=== PATIENT | female | born 1940 | race Caucasian/White ===

== ENCOUNTER 2023-01-23 19:01 | Emergency (ER) | payer MEDICARE, SELFPAY ==
--- NOTE | ~2023-01-23 | XR_ITS ---
EXAMINATION: XR chest 2V Exam Date/Time: 01/23/2023 19:25 CDT HISTORY: non productive cough w/sob X's 2 days Comparison: 05/10/2015. RESULT: Lines, tubes, and devices: None. Lungs and pleura: Senescent changes, otherwise clear. Cardiomediastinal silhouette: Stable. Moderate hiatal hernia. Other: No acute osseous or upper abdominal finding. IMPRESSION: No acute cardiopulmonary process. Reviewed, dictated and finalized at location K.
--- NOTE | 2023-01-23 19:02 | ED.URI ---
HPI - URI/Sore Throat General Chief Complaint: Upper Respiratory Infection Stated Complaint: Cough,Runny Nose,Sore Throat Time Seen by Provider: 01/23/23 19:02 Source: patient Mode of arrival: ambulatory Limitations: no limitations History of Present Illness HPI Narrative: Camille is an 82-year-old female patient presenting to the clinic with complaints of body aches, fatigue, runny nose, cough, shortness of breath, and sore throat x2 days. Cough is nonproductive. No history of asthma or COPD. She reports that she did a COVID test today and thought it may have been positive. Is requesting a COVID test as she is needing confirmation for work MD elicited complaint: cough, sore throat, rhinorrhea and nasal congestion Related Data Home Medications Medication Instructions Recorded Confirmed clopidogrel 75 mg tablet 75 mg PO DAILY 01/23/23 01/23/23 dicyclomine 10 mg capsule 10 mg PO HS 01/23/23 01/23/23 estradiol 1 mg tablet 1 mg PO DAILY 01/23/23 01/23/23 lisinopril 20 mg tablet 20 mg PO DAILY 01/23/23 01/23/23 pantoprazole 20 mg tablet,delayed 20 mg PO DAILY 01/23/23 01/23/23 release tizanidine 4 mg tablet 4 mg PO HS 01/23/23 01/23/23 Allergies Allergy/AdvReac Type Severity Reaction Status Date / Time hydrocodone AdvReac Mild Hives Verified 01/23/23 19:04 Review of Systems Review of Systems: Pertinent positives per HPI. Patient denies any fever, chills, rash, headache, visual changes, dizziness, chest pain, palpitations, nausea, vomiting, diarrhea, constipation, abdominal pain, or any urinary issues. PMFSH Comments At the time of my signature, I reviewed and agree with the nursing past medical, surgical, social, and family history. There is no relevant family history pertinent to the patient complaint. Exam Narrative: General: Well-developed, well nourished, in no apparent distress Head: Normocephalic, atraumatic Eyes: Pupils equally round and reactive to light bilaterally, EOM intact, sclera and conjunctive clear, no discharge, lids normal Ears: TMs intact and congested, ear canals clear, no drainage, grossly hearing normal. Nose: Nares patent, clear nasal discharge, no inflammation, no sinus tenderness. Mouth: Oral pharynx without lesions or masses, good dentition, MMM. Postnasal drip Neck: Supple, trachea midline, no enlargement of anterior or posterior cervical nodes, no thyroid masses or goiter palpable. Cardio: Regular rate and rhythm, s1 and s2 normal, no murmur appreciated. Resp: Clear to auscultation bilaterally, no rhonchi, rales, wheezing or rubs Course Course Emergency Course: Portions of this record may have been created with voice recognition software. Level of Care: Express Care Visit Vital Signs Vital signs: Vital signs reviewed MDM - URI/Sore Throat MDM Narrative Medical decision making narrative: At the time of visit patient is resting comfortably on exam table. COVID, influenza, and strep testing was completed and was negative in the clinic today. We will send strep for culture. Chest x-ray was performed and shows no acute cardiopulmonary process. I suspect patient has URI/pharyngitis/viral syndrome. Supportive measures were discussed with the patient she voiced understanding discharge instructions. Patient's blood pressure was elevated in the clinic today and this was discussed with the patient. She is to follow up with her PCP if symptoms persist Differential Diagnosis Differential diagnosis: Likely upper respiratory infection, otitis media, sinusitis, viral infection, bronchitis, influenza, pharyngitis and other (COVID) Imaging Data Radiologist's impression: [place] [address] XRay Report Signed Patient: Camille Davies : 1940 MR#: [id number] Age/Sex: 82 / F Acct:[id number] Loc: [facility]? ? ADM Date: 01/23/23Attending Dr: Ordering Physician: Fredy Luke APRN Date of Ser
[2023-01-23 19:18] VITALS: BP 191/75; PULSE 88; RESP 18; TEMP 36.9; O2SAT 100
[2023-01-23 20:07] VITALS: BP 185/62
== END 2023-01-23 19:55 | disposition home or self-care (01) ==
PROVIDERS: Emergency Provider Nurse Practitioner Family; PCP Internal Medicine
DX: J06.9 Acute upper respiratory infection, unspecified (principal); J02.9 Acute pharyngitis, unspecified; B34.9 Viral infection, unspecified; Z20.822 Contact with and (suspected) exposure to COVID-19; I10 Essential (primary) hypertension; K21.9 Gastro-esophageal reflux disease without esophagitis; M19.90 Unspecified osteoarthritis, unspecified site; Z86.73 Personal history of transient ischemic attack (TIA), and cerebral infarction without residual deficits; Z85.828 Personal history of other malignant neoplasm of skin
CPT/HCPCS: 71046; 87081; 87426; 87804; 87880; 99213; C9803; G0463

== ENCOUNTER 2023-05-10 13:39 | Outpatient (CLI) | payer MEDICARE, SELFPAY ==
[2023-05-10 15:48] LABS: IFOB Positive Control Positive; Immunochemical Fecal Occult Bl Negative (N)
[2023-05-17 21:38] LABS: Calprotectin, Stool 73 mcg/g
== END 2023-05-10 13:40 | disposition home or self-care (01) ==
PROVIDERS: PCP Internal Medicine; Visit Provider Internal Medicine Gastroenterology
DX: R19.7 Diarrhea, unspecified (principal)
CPT/HCPCS: 82274; 83993; 87045; 87177; 87209; 87427; 87449; 87493; 89055